=== PATIENT | female | born 1990 | race Caucasian/White ===

== ENCOUNTER 2018-01-27 09:33 | Outpatient (CLI) | payer OTHER ==
[2018-01-27 10:36] LABS: Hemoglobin 14.2 g/dL (12.0-16.0); Mean Corpuscular HGB CONC 34.9 g/dL (32.0-36.0); Mean Corpuscular Hemoglobin 33.9 pg (27.0-31.0); Mean Corpuscular Volume 96.9 fL (78.0-98.0); Mean Platelet Volume 7.6 fL (7.4-10.4); Platelet Count 173 thou/uL (130-400); RBC Distribution Width 11.2 % (11.5-14.5); White Blood Cell (WBC) Count 5.4 thou/uL (4.8-10.8)
[2018-01-27 10:50] LABS: BHCG - Serum Negative (NEGATIVE); Pregs Control Background? CLEAR/WHITE (CLR/WHITE); Pregs Control Bar Appear? YES (CONTROL BAR)
== END 2018-01-27 09:34 | disposition home or self-care (01) ==
LOC: LABBT 09:33
PROVIDERS: ATTEND Obstetrics & Gynecology
DX: Z01.818 Encounter for other preprocedural examination (principal); N80.9 Endometriosis, unspecified; R10.2 Pelvic and perineal pain
CPT/HCPCS: 84703; 85027; 86850; 86900; 86901

== ENCOUNTER 2018-01-28 07:42 | Day surgery (SDC) | payer OTHER ==
--- NOTE | 2018-01-27 08:27 | HP ---
HISTORY OF PRESENT ILLNESS: Ms. Stroud is a 27-year-old white female G0 with previous history of a right ovarian endometrioma that was found on transvaginal ultrasound approximately 1 year prior. Rahel holguin had been having some increasing dysmenorrhea and pelvic pain and dyspareunia. She had been placed on oral contraceptives for this which had improvement in her symptoms and has been observed. She has been reporting some recent increased pelvic pain symptoms and dyspareunia and had followup ul trasound to assess the stability of the endometrioma on 12/13/2017. The pelvic ultrasound showed adrian t there was some growth in the right ovarian endometrioma which is now measuring 4.5 x 2.4 x 3.2 cm. The uterus was normal in size with no uterine fibroids or abnormal endometrial lining. Findings christin suring 8.7 x 3.98 x 4.5 cm. Endometrial lining was 9.7. Left ovary was normal. There was no abnorm al pelvic cul-de-sac fluid findings. The patient also underwent a Pap smear which was negative on . The patient had a previous history of a LEEP procedure for high grade dysplasia in the past, but has had subsequent negative Pap smears for dysplasia observation. PAST MEDICAL HISTORY: As per HPI and also some anxiety and depression for which she takes Lexapro an d bupropion. PAST SURGICAL HISTORY: She has had a prior tonsillectomy and also LEEP procedure of the cervix. CURRENT MEDICATIONS: Bupropion 150 mg XL q.a.m., Lexapro 10 mg every day, and Mononessa OCPs. SOCIAL HISTORY: No tobacco use, nonsmoker. No excessive alcohol use. She is employed and is also a ttending school. ALLERGIES: She has no known drug allergies. FAMILY HISTORY: Essential hypertension, hyperlipidemia, diabetes, and breast cancer in her family. PHYSICAL EXAMINATION: VITAL SIGNS: Her blood pressure is 118/64, pulse 80, respirations 18, height 68 inches, weight 165 w ith a BMI of 25. GENERAL: This is a well-developed, well-nourished, white female in no acute distress. NECK: Supple, no thyromegaly or masses. CHEST: Clear to auscultation. HEART: Regular rate and rhythm. S1, S2 heart sounds, no murmurs, rubs or gallops. ABDOMEN: Soft, nontender, nondistended with no palpable masses. PELVIC: Vulva and vagina had no lesions. Cervix had no lesions. Uterus is small, nontender. Adnex a; there was some fullness on the right side where the endometrioma is and some mild tenderness. Lef t side was nontender with no masses. ASSESSMENT: This is a 27-year-old white female G0 with a growing endometrioma of the right ovary and recurrence of symptoms of pelvic pain, dyspareunia and dysmenorrhea. She currently is on oral contr aceptive therapy. PLAN: Proceed with a robotic diagnostic laparoscopy with planned right ovarian cystectomy of bree ley. Possible right salpingo-oophorectomy if significant disease in the right ovary is noted. Wou ld also inspect the pelvis and excise and ablate any areas of active endometriosis that is visualized . This will be scheduled on 01/28/2018.
[2018-01-27 09:56] VITALS: BMI 25.9
[2018-01-28] MEDS ORDERED: Midazolam HCl 2 mg/2 ml Vial ONE ×2 (08:46→09:59)
[2018-01-28] MEDS ORDERED: CEFAZOLIN/Water 2 GM/20 ML SYRINGE ONE (09:15)
[2018-01-28] MEDS ORDERED: Bupivacaine HCl 0.5%/Epinephrine 1:200,000/PF 30 ml Vial ONE (09:47)
[2018-01-28] MEDS ORDERED: Gabapentin 300 MG CAP ONE (09:59)
[2018-01-28] MEDS ORDERED: Famotidine/PF 20 mg/2ml Vial ONE ×2 (09:59→10:04)
[2018-01-28] MEDS ORDERED: Fentanyl 250 MCG/5 ML VIAL ONE (09:59)
[2018-01-28] MEDS ORDERED: CeleCOXIB 100 MG CAP ONE (10:00)
[2018-01-28] MEDS ORDERED: PROPOFOL 200 MG/20 ML VIAL ONE (12:32)
[2018-01-28] MEDS ORDERED: Glycopyrrolate 0.2 MG/ML 5 ML SYRINGE ONE (12:32)
[2018-01-28] MEDS ORDERED: Ondansetron HCl/PF 4 MG/2 ML Vial ONE (12:32)
[2018-01-28] MEDS ORDERED: Ketorolac Tromethamine 30 MG/ML VIAL ONE (12:32)
[2018-01-28] MEDS ORDERED: Dexamethasone 20 MG/5 ML VIAL ONE (12:32)
[2018-01-28] MEDS ORDERED: Lidocaine 1% PF 5 ML VIAL ONE (12:32)
--- NOTE | 2018-01-28 13:34 | OP ---
DATE OF PROCEDURE: 01/28/2018 PREOPERATIVE DIAGNOSES: A 27-year-old white female G0 with pelvic pain, dyspareunia and right ovaria n endometrioma seen on ultrasound. POSTOPERATIVE DIAGNOSES: A 27-year-old white female G0 with pelvic pain, dyspareunia and right ovari an endometrioma seen on ultrasound. Pelvic endometriosis. PROCEDURE PERFORMED: Robotic right ovarian cystectomy and excision and fulguration of endometriotic implants. SURGEON: Opal Resendiz M.D. HAT LACER: Aquilino Molina D.O. ANESTHESIA: General endotracheal. ESTIMATED BLOOD LOSS: Less than 10 mL. COMPLICATIONS: None. COUNTS: Correct x2. 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 PATHOLOGY: Right ovarian endometrioma cyst wall along with endometriotic implants in the posterior c ul-de-sac. FINDINGS: Approximately 4.5-5 cm right ovarian endometrioma, status post excision with approximately 3-4 cm residual of right ovarian tissue noted. Normal left fallopian tube and ovary and normal righ t fallopian tube. There was some scattered powder burn lesions in the posterior cul-de-sac of the pe ritoneal cavity with some nodularity which was excised. There was an anterior cul-de-sac peritoneal implant of powder burn implant approximately 3 mm in size on the vesicouterine peritoneum, status pos t fulguration. There was some tenting in the peritoneum and scarring in the posterior cul-de-sac, bu t the posterior cul-de-sac showed no evidence of obliteration, anterior cul-de-sac with no evidence o f obliteration, normal retrocecal appendix with no obvious endometriosis activity. DISPOSITION: To the recovery room stable. DESCRIPTION OF OPERATIVE PROCEDURE: The patient previously received informed consent in regards to s mary. She was taken back to the operating room where she received a general endotracheal anestheti c agent without complications. She was placed in the dorsal lithotomy position with the use of Pradeep stirrups and prepped and draped in usual sterile fashion. A sidearm speculum was placed in the vagi na after a Enriquez catheter had been placed. The anterior lip of cervix grasped with a single-tooth te naculum and a Hulka uterine manipulator was placed through the cervical os for uterine manipulation. The speculum and tenaculum were removed. Attention was then turned to the abdomen where perspective trocar sites were infiltrated with 0.5% Marcaine with epinephrine. An 8 mm infraumbilical incision was made. Veress needle was entered into the peritoneal cavity. Patient pressure was noted to be le ss than 5 mm and the patient's abdomen was insufflated to patient pressure of 15, approximately 4.5 l iters of carbon dioxide gas. The laparoscope was introduced, 8 mm size through the trocar sleeve. P louisa entry was confirmed. Additional bilateral lower quadrant 8 mm trocars were placed along with t he right upper quadrant 11 mm trocar. The robot was then docked in usual fashion. I proceeded then to carry out the surgical procedure from the operative console while my assistants [facility]. The uterus was elevated. The right uterine ovarian ligament was grasped by my legal administrative assistant with atraumatic grasper. This allowed us to visualize under the surface of the right ovary where the del ineation between the endometrioma and cyst wall and the normal ovarian tissue was made. Monopolar sc issors were then utilized to incise along this plane while my legal administrative assistant grasped the specimen portion of the ovary and cyst wall with the grasper. This allowed for opening of the cyst with drainage of a chocolate covered material consistent with endometrioma contents. The cyst wall was then teased and dissected both sharply and bluntly from the normal ovarian tissue. The boundary between the normal tissue and cyst wall was then cauterized with bipolar fenestrated cautery and this was excised. A sp ecimen Endobag was brought in through the right upper quadrant port and the specimen was placed in th e bag and removed by my legal administrative assistant. The bed of the ovarian pedicle site was then cauterized with bipo lar fenestrated cautery achieving hemostasis. Additionally, the nodular implants and posterior cul-d e-sac were grasped by my bipolar fenestrated cautery and this allowed for dissection under the perito neum monopolar scissors removing the nodular implants in the posterior cul-de-sac and these were sent for pathology. The areas of powder burn lesions were coagulated with the bipolar fenestrated cauter y and the posterior cul-de-sac and the anterior vesicouterine peritoneum fold. The pelvis was irriga lupe and suctioned. Again, hemostasis along the operative sites were confirmed. The excess carbon di oxide gas was then released from the abdomen after the previously mentioned findings were noted. The robot was undocked. The trocar sleeves were removed. The trocar sites were closed with 4-0 Monocry l suture in subcuticular fashion with Dermabond. The Hulka uterine manipulator was removed. Hemosta sis of the vaginal vault was confirmed. The patient was awakened from anesthesia and transferred to the recovery room stable. She will expect to be discharged home later once day stay criteria is met and has a followup in 3 weeks.
== END 2018-01-28 13:15 | disposition home or self-care (01) ==
LOC: SDC 07:42
PROVIDERS: ATTEND Obstetrics & Gynecology
PROC: 0UB04ZZ Excision of Right Ovary, Percutaneous Endoscopic Approach (ICD-10-PCS; principal; 2018-01-28)
DX: N83.201 Unspecified ovarian cyst, right side (principal); F41.9 Anxiety disorder, unspecified; F32.9 Major depressive disorder, single episode, unspecified; Z79.899 Other long term (current) drug therapy
CPT/HCPCS: 88305; J0670; J1100; J1885; J2001; J2250; J2405; J2704; J3010; S0028